=== PATIENT | female | born 1940 | race Caucasian/White ===

== ENCOUNTER 2018-03-18 13:03 | Inpatient (IN) | payer MEDICARE ==
--- NOTE | 2018-03-18 13:42 | ED Physician Chart ---
ED Chief Complaint/HPI - Patient Information Date Seen:: 03/18/18 Time Seen:: 13:37 Chief Complaint:: Depression and dementia History of Present Illness:: 78 yo female had increasing dementia and depression since her 2 months ago. Patient was hospitalized at [facility] 3 weeks ago for increased agitation. During past few days, patient became increasingly aggressive. Patient's family took patient to ER for further evaluation and management. Allergies:: Allergies Allergy/AdvReac Type Severity Reaction Status Date / Time No Known Allergies Allergy Verified 03/18/18 13:28 ED Review of Systems - Review of Systems General/Constitutional: No fever Skin: Skin lesions Head: No headache Eyes: No pain ENT: No nasal drainage Neck: No neck pain Cardio Vascular: No chest pain Pulmonary: No SOB GI: No nausea, No vomiting G/U: No dysuria Musculoskeletal: No bone or joint pain Psychiatric: Depression Neurological: No focal symptoms ED Past Medical History - Past Medical History Past Medical History: Thyroid disorder (Hypothyroidism) Social History: Non Smoker, Alcohol, Illicit Drug Use (marijuana) Surgical History: None ED Physical Exam - Physical Examination General/Constitutional: Awake Head: Atraumatic Eyes: PERRL Skin: No skin lesions ENMT: Nasal exam nl Neck: No nuchal rigidity Respiratory: No Wheeze/Rhonchi/Rales Cardio Vascular: RRR, No murmur, gallop, rubs, NL S1 S2 GI: No tenderness/rebounding/guarding Extremities: normal strength in all extremities Neuro/Psych: Normal motor strength Other Neuro/Psych comments:: Alert, oriented to self only ED Labs/Radiology/EKG Results - Lab Results Results: Laboratory Last Values WBC 11.6 Th/cmm (4.8-10.8) H 03/18/18 14:00 RBC 4.41 Mil/cmm (3.80-5.20) 03/18/18 14:00 Hgb 13.6 gm/dL (12-16) 03/18/18 14:00 Hct 40.7 % (41.0-60) L 03/18/18 14:00 MCV 92.4 fl (81-100) 03/18/18 14:00 MCH 30.8 pg (27.0-31.0) 03/18/18 14:00 MCHC Differential 33.3 pg (28.0-36.0) 03/18/18 14:00 RDW 12.3 % (11.5-20.0) 03/18/18 14:00 Plt Count 475 Th/cmm (150-400) H 03/18/18 14:00 MPV 6.8 fl 03/18/18 14:00 Neutrophils % 73.4 % (40.0-80.0) 03/18/18 14:00 Lymphocytes % 18.7 % (20.0-50.0) L 03/18/18 14:00 Monocytes % 7.0 % (2.0-10.0) 03/18/18 14:00 Eosinophils % 0.5 % (0.0-5.0) 03/18/18 14:00 Basophils % 0.4 % (0.0-2.0) 03/18/18 14:00 Sodium 138 mEq/L (136-145) 03/18/18 14:00 Potassium 3.8 mEq/L (3.5-5.1) 03/18/18 14:00 Chloride 104 mEq/L (98-107) 03/18/18 14:00 Carbon Dioxide 25.2 mEq/L (21.0-31.0) 03/18/18 14:00 Anion Gap 12.6 (7.0-16.0) 03/18/18 14:00 BUN 14 mg/dL (7-25) 03/18/18 14:00 Creatinine 0.8 mg/dL (0.6-1.2) 03/18/18 14:00 Est GFR ( Amer) TNP 03/18/18 14:00 Est GFR (Non-Af Amer) TNP 03/18/18 14:00 BUN/Creatinine Ratio 17.5 03/18/18 14:00 Glucose 94 mg/dL (70-105) 03/18/18 14:00 Calcium 9.5 mg/dL (8.6-10.3) 03/18/18 14:00 Total Bilirubin 1.0 mg/dL (0.3-1.0) 03/18/18 14:00 AST 31 U/L (13-39) 03/18/18 14:00 ALT 22 U/L (7-52) 03/18/18 14:00 Alkaline Phosphatase 67 U/L (34-104) 03/18/18 14:00 Total Protein 7.4 gm/dL (6.0-8.3) 03/18/18 14:00 Albumin 4.2 gm/dL (3.7-5.3) 03/18/18 14:00 Globulin 3.2 gm/dL 03/18/18 14:00 Albumin/Globulin Ratio 1.3 (1.0-1.8) 03/18/18 14:00 - Radiology Results Results: CXR: no focal consolidation - EKG Interpretations EKG Time:: 14:05 Rate & Rhythm: 73 bpm, sinus rhythm [place]: normal P axis Intervals: normal ED Assessment - Assessment General Assessment: Hypertension Hypothyroidism Leukocytosis Psychosis Dementia Assessment/Comments:: CBC, CMP, UA EKG, CXR Ciprofloxacin 500mg PO x 1 Admit to [facility] unit ED Septic Shock - . Is Septic Shock (SBP<90, OR Lactate>4 mmol\L) present?: No ED Reassessment (Disposition) - Reassessment Reassessment Condition:: Unchanged - Patient Disposition Discharge/Transfer:: [facility] w/in this hosp Admitting Medical Physician:: Twan Hunter Admitting Psych Physician:: Lon Allison ED Discharge Plan - Patient Disposition Admit/Discharge/Transfer: Acute Care w/in this hosp Condition at Disposition: Stable
[2018-03-18 14:13] LABS: % BASOPHILS 0.4 % (0.0-2.0); % EOSINOPHILS 0.5 % (0.0-5.0); % LYMPHOCYTES 18.7 % (20.0-50.0); % NEUTROPHILS 73.4 % (40.0-80.0); EOSINOPHILE ABSOLUTE 0.1 Th/cmm (0.1-0.4); HEMATOCRIT 40.7 % (41.0-60); HEMOGLOBIN 13.6 gm/dL (12-16); LYMPHOCYTE ABSOLUTE 2.2 Th/cmm (1.5-3.0); MEAN CELL VOLUME 92.4 fl (81-100); MEAN CORPUSCULAR HEMOGLOBIN 30.8 pg (27.0-31.0); MEAN CORPUSCULAR HGB CONC 33.3 pg (28.0-36.0); MEAN PLATELET VOLUME 6.8 fl; MONOCYTE ABSOLUTE 0.8 Th/cmm (0.3-1.0); NEUTROPHILE ABSOLUTE 8.5 Th/cmm (1.8-8.0); PLATELET COUNT 475 Th/cmm (150-400); RED BLOOD COUNT 4.41 Mil/cmm (3.80-5.20); RED CELL DISTRIBUTION WIDTH 12.3 % (11.5-20.0); WHITE BLOOD COUNT 11.6 Th/cmm (4.8-10.8)
[2018-03-18 14:31] LABS: ALB/GLOB RATIO 1.3 (1.0-1.8); ALBUMIN 4.2 gm/dL (3.7-5.3); ALKALINE PHOSPHATASE 67 U/L (34-104); ANION GAP 12.6 (7.0-16.0); BUN - UREA NITROGEN 14 mg/dL (7-25); CALCIUM SERUM 9.5 mg/dL (8.6-10.3); CARBON DIOXIDE 25.2 mEq/L (21.0-31.0); CHLORIDE 104 mEq/L (98-107); CREATININE - SERUM 0.8 mg/dL (0.6-1.2); GLUCOSE 94 mg/dL (70-105); POTASSIUM SERUM 3.8 mEq/L (3.5-5.1); SGOT 31 U/L (13-39); SGPT/ALT 22 U/L (7-52); SODIUM SERUM 138 mEq/L (136-145); TOTAL PROTEIN,SERUM 7.4 gm/dL (6.0-8.3)
--- NOTE | 2018-03-18 14:33 | Diagnostic Imaging Report ---
Portable chest x-ray History: Shortness of breath Allowing for portable technique the heart size is normal. No focal pulmonary parenchymal processes. No hilar or mediastinal abnormalities. Impression: No acute abnormalities.
[2018-03-18 16:41] LABS: URINE BILIRUBIN NEGATIVE (NEGATIVE); URINE BLOOD SMALL (NEGATIVE); URINE GLUCOSE (UA) NEGATIVE (NEGATIVE); URINE KETONE NEGATIVE (NEGATIVE); URINE LEUKOCYTE ESTERASE SMALL (NEGATIVE); URINE NITRATE NEGATIVE (NEGATIVE); URINE PH 5.5 (4.6 - 8.0); URINE PROTEIN TRACE mg/dL (NEGATIVE); URINE SOURCE RANDOM; URINE UROBILINOGEN 0.2 E.U./dL (0.2 - 1.0)
[2018-03-18 16:46] LABS: URINE CLARITY CLEAR (CLEAR); URINE COLOR YELLOW
[2018-03-18] MEDS ORDERED: Haloperidol Lactate 5 mg/mL 1mL Vial IM ONE (16:50)
[2018-03-18] MEDS ORDERED: Haloperidol Lactate 5 mg/mL 1mL Vial ONE (16:54)
[2018-03-18 17:15] LABS: AMPHETAMINE URINE NEGATIVE (NEGATIVE); BARBITURATES URINE NEGATIVE (NEGATIVE); CANNABINOID THC POSITIVE (NEGATIVE); COCAINE METABOLITE QUAL URINE NEGATIVE (NEGATIVE); METHADONE URINE NEGATIVE (NEGATIVE); METHAMPHETAMINES QUAL URINE NEGATIVE (NEGATIVE); OPIATES (MORPHINE) QUAL. URINE NEGATIVE (NEGATIVE); PHENCYCLIDINE (PCP) URINE NEGATIVE (NEGATIVE); TRICYCLICS (TCA) QUAL. URINE POSITIVE (NEGATIVE)
[2018-03-18 17:16] LABS: BENZODIAZEPINES QUAL URINE POSITIVE (NEGATIVE)
[2018-03-18] MEDS ORDERED: Maalox 30 mL Cup PO PRN (17:39)
[2018-03-18] MEDS ORDERED: Magnesium Hydroxide (MOM) 30 mL UDC PO PRN (17:39)
[2018-03-18] MEDS ORDERED: ZALEPLON 10 MG PO PRN (17:45)
[2018-03-18 17:54] VITALS: BP 173/85
--- NOTE | 2018-03-19 04:45 | Psychosocial Evaluation ---
DATE OF SERVICE: 03/18/2018 IDENTIFYING DATA: The patient is an 78-year-old woman living by herself. Information obtained by directly interviewing the patient as well as reviewing the admission papers and they are reliable. JUSTIFICATION FOR HOSPITALIZATION: The patient is admitted here on a voluntary basis in view of her acute psychosis. CHIEF COMPLAINT: "I have 5 and 6-year-old at home. I need to go home and call my son right away." HISTORY OF PRESENT ILLNESS: This is the first psychiatric hospitalization to [facility] for this patient who is reported to have been decompensating since the of her a few months ago. The patient is during the hospitalization has not been making much sense and has been screaming and yelling and is reported to have been going off on the staff members and the patient has to be given 2 mg of Haldol along with 25 Benadryl to calm her down. The patient at this time has been mentioning that she has 2 small children and she needs to go home. The patient is not making much sense and patient has been pacing most of the time on the unit. PAST PSYCHIATRIC HISTORY: Details are not known. MEDICAL HISTORY: Physical examination is requested to be done by Dr. Hunter. SUBSTANCE ABUSE HISTORY: None. PHYSICAL OR SEXUAL ABUSE HISTORY: None. LEGAL PROBLEMS: None at this time. STRENGTH AND ASSETS: The patient seems to be motivated. MENTAL STATUS EXAMINATION: The patient is an 78-year-old woman looking very frail, superficially cooperative. Eye contact is poor. Mood is noted to be irritable. Affect is constricted. The patient has short-term as well as long-term memory deficits. Insight and judgment at this time are noted to be very much impaired. Impulse control is noted to be poor. Coping skills are also noted very poor. The patient has been having difficult time to cope with the stress and has been pacing on the unit most of the time. The patient is not able to contract for safety at this time. The patient's behavior is ____ danger to self and others because of her behavior. DIAGNOSTIC IMPRESSION: AXIS I: Psychotic disorder, not otherwise specified. AXIS II: None. AXIS III: As per Dr. Hunter. IMMEDIATE TREATMENT PLAN: The patient is going to be observed on the inpatient unit, provided with supportive psychotherapy. The patient is going to be closely monitored and once stabilized, the patient is going to be discharged to [facility] to be followed up on an outpatient basis. JOB# [id number]
[2018-03-19] MEDS: Levothyroxine 0.075 Mg Tab PO SCH (06:48)
[2018-03-19] MEDS ORDERED: CANNABIS PO SCH (09:00)
[2018-03-19] MEDS: Escitalopram Oxalate 5 mg Tab PO SCH (09:41)
[2018-03-19] MEDS: Multivitamin Tab PO SCH (09:42)
--- NOTE | 2018-03-19 13:22 | History & Physical ---
ADMIT DATE: 03/18/2018 INTERNAL MEDICINE HISTORY AND PHYSICAL CHIEF COMPLAINT: Admitted for inpatient care. HISTORY OF PRESENT ILLNESS: This is an 78-year-old female with a history of hypertension, hypothyroidism, dementia, hypercholesterolemia, admitted from home secondary to agitated behavior. The patient is confused. The patient was seen by Dr. Allison and diagnosed with psychosis. The patient was cleared through the ER. PAST MEDICAL HISTORY: As mentioned in history of present illness. PAST SURGICAL HISTORY: Unable to obtain from the patient right now. ALLERGIES: No known drug allergies. MEDICATIONS: Lipitor, carvedilol, vitamin B12, Aricept, Keppra, Synthroid, Seroquel, and Sonata. FAMILY HISTORY: Noncontributory. SOCIAL HISTORY: The patient lives home. This is limited information. REVIEW OF SYSTEMS: This is limited secondary to the patient's current mental state. Case was discussed with the patient's son, Te Gray, as well as the patient's first . Apparently, the patient is from her second about 2 months ago and everything has been spiraling for the last 5 months according to the son. PHYSICAL EXAMINATION: VITAL SIGNS: Blood pressure 136/77, previously 172/85; respiration 20, pulse 94, temperature 98.0. GENERAL: Elderly female, appears her stated age. NECK: Supple. No mass. LUNGS: Equal breath sounds. Very few rhonchi. HEART: Regular rate and rhythm with a systolic ejection murmur. ABDOMEN: Soft, globular. Positive bowel sounds. EXTREMITIES: Positive excoriation. The patient's right upper extremity, please see the picture. No clubbing, cyanosis, or edema. NEUROLOGIC: Limited. LABORATORY DATA: WBC is 11, hemoglobin 13, platelets 475. Chemistries are within range. There is small blood in the urine and small leukocytes. Positive tricyclic, benzo, and marijuana. ASSESSMENT: 1. Hypertension. 2. Hypothyroidism. 3. Right upper extremity abrasion. 4. Leukocytosis. 5. Dementia. 6. Hypercholesterolemia. 7. Seizure, questionable. PLAN: We will continue the patient on current list of medications. We will prescribe the patient clonidine on an as needed basis. The patient will continue on Keppra as well as Synthroid. Case was discussed with the family member. We will continue to monitor the patient closely. [facility]# [id number]
--- NOTE | 2018-03-19 14:51 | Progress Notes ---
DATE: 03/19/2018 SUBJECTIVE: Staff was spoken to. The patient is interviewed. Mood is noted to be irritable. Affect is constricted. The patient is very angry and upset. The patient's son has been spoken to and he has been mentioning most of the problems have been coming from the right after the birthday of the patient that is her 78th birthday. The patient is reported to have been displaying a gross change in her behavior. The patient has been defecating and on the floors and also has been pacing most of the time and is not being much of any attention. The patient has been getting easily paranoid. The patient is reported to have been trying to take a swing at the staff members on the unit and the patient is to be closely monitored. The patient has no insight into her illness. In view of this, the patient has been started on 25 mg of the Seroquel and the patient is going to be closely monitored. ASSESSMENT: The patient's son mentioned that the patient has been severely depressed following the of her . The patient is going to be closely monitored at this time and followed up with supportive therapy and followed up. JOB# [id number]
[2018-03-19] MEDS: Atorvastatin Calcium 10 MG TAB PO SCH (16:46)
[2018-03-20] MEDS: Levothyroxine 0.075 Mg Tab PO SCH (06:30)
[2018-03-20] MEDS: Multivitamin Tab PO SCH (09:03)
[2018-03-20] MEDS: Escitalopram Oxalate 5 mg Tab PO SCH (09:03)
--- NOTE | 2018-03-20 12:37 | Internal Medicine Prog Note ---
Internal Medicine Subjective - Subjective Service Date: 03/20/18 Patient seen and examined:: with staff Patient is:: awake, verbal Per staff patient has:: tolerating meds Internal Medicine Objective - Results Result Diagrams: 03/18/18 14:00 03/18/18 14:00 Recent Labs: Laboratory Last Values WBC 11.6 Th/cmm (4.8-10.8) H 03/18/18 14:00 RBC 4.41 Mil/cmm (3.80-5.20) 03/18/18 14:00 Hgb 13.6 gm/dL (12-16) 03/18/18 14:00 Hct 40.7 % (41.0-60) L 03/18/18 14:00 MCV 92.4 fl (81-100) 03/18/18 14:00 MCH 30.8 pg (27.0-31.0) 03/18/18 14:00 MCHC Differential 33.3 pg (28.0-36.0) 03/18/18 14:00 RDW 12.3 % (11.5-20.0) 03/18/18 14:00 Plt Count 475 Th/cmm (150-400) H 03/18/18 14:00 MPV 6.8 fl 03/18/18 14:00 Neutrophils % 73.4 % (40.0-80.0) 03/18/18 14:00 Lymphocytes % 18.7 % (20.0-50.0) L 03/18/18 14:00 Monocytes % 7.0 % (2.0-10.0) 03/18/18 14:00 Eosinophils % 0.5 % (0.0-5.0) 03/18/18 14:00 Basophils % 0.4 % (0.0-2.0) 03/18/18 14:00 Sodium 138 mEq/L (136-145) 03/18/18 14:00 Potassium 3.8 mEq/L (3.5-5.1) 03/18/18 14:00 Chloride 104 mEq/L (98-107) 03/18/18 14:00 Carbon Dioxide 25.2 mEq/L (21.0-31.0) 03/18/18 14:00 Anion Gap 12.6 (7.0-16.0) 03/18/18 14:00 BUN 14 mg/dL (7-25) 03/18/18 14:00 Creatinine 0.8 mg/dL (0.6-1.2) 03/18/18 14:00 Est GFR ( Amer) TNP 03/18/18 14:00 Est GFR (Non-Af Amer) TNP 03/18/18 14:00 BUN/Creatinine Ratio 17.5 03/18/18 14:00 Glucose 94 mg/dL (70-105) 03/18/18 14:00 Calcium 9.5 mg/dL (8.6-10.3) 03/18/18 14:00 Total Bilirubin 1.0 mg/dL (0.3-1.0) 03/18/18 14:00 AST 31 U/L (13-39) 03/18/18 14:00 ALT 22 U/L (7-52) 03/18/18 14:00 Alkaline Phosphatase 67 U/L (34-104) 03/18/18 14:00 Troponin I 0.01 ng/mL (0.01-0.05) 03/18/18 14:00 B-Natriuretic Peptide 60.4 pg/mL (5.0-100.0) 03/18/18 14:00 Total Protein 7.4 gm/dL (6.0-8.3) 03/18/18 14:00 Albumin 4.2 gm/dL (3.7-5.3) 03/18/18 14:00 Globulin 3.2 gm/dL 03/18/18 14:00 Albumin/Globulin Ratio 1.3 (1.0-1.8) 03/18/18 14:00 TSH 2.89 uIU/ml (0.34-5.60) 03/18/18 14:00 Urine Source RANDOM 03/18/18 15:26 Urine Color YELLOW 03/18/18 15:26 Urine Clarity CLEAR (CLEAR) 03/18/18 15:26 Urine pH 5.5 (4.6 - 8.0) 03/18/18 15:26 Ur Specific [place] >= 1.030 (1.005-1.030) 03/18/18 15:26 Urine Protein TRACE mg/dL (NEGATIVE) 03/18/18 15:26 Urine Glucose (UA) NEGATIVE mg/dL (NEGATIVE) 03/18/18 15:26 Urine Ketones NEGATIVE mg/dL (NEGATIVE) 03/18/18 15:26 Urine Blood SMALL (NEGATIVE) H 03/18/18 15:26 Urine Nitrate NEGATIVE (NEGATIVE) 03/18/18 15:26 Urine Bilirubin NEGATIVE (NEGATIVE) 03/18/18 15:26 Urine Urobilinogen 0.2 E.U./dL (0.2 - 1.0) 03/18/18 15:26 Ur Leukocyte Esterase SMALL (NEGATIVE) H 03/18/18 15:26 Urine RBC Not Reportable 03/18/18 15:26 Urine WBC Not Reportable 03/18/18 15:26 Ur Epithelial Cells Not Reportable 03/18/18 15:26 Urine Bacteria Not Reportable 03/18/18 15:26 Urine Opiates Screen NEGATIVE (NEGATIVE) 03/18/18 15:26 Urine Methadone Screen NEGATIVE (NEGATIVE) 03/18/18 15:26 Ur Barbiturates Screen NEGATIVE (NEGATIVE) 03/18/18 15:26 Ur Tricyclics Screen POSITIVE (NEGATIVE) H 03/18/18 15:26 Ur Phencyclidine Scrn NEGATIVE (NEGATIVE) 03/18/18 15:26 Amphetamines Screen NEGATIVE (NEGATIVE) 03/18/18 15:26 U Methamphetamines Scrn NEGATIVE (NEGATIVE) 03/18/18 15:26 U Benzodiazepines Scrn POSITIVE (NEGATIVE) H 03/18/18 15:26 U Cocaine Metab Screen NEGATIVE (NEGATIVE) 03/18/18 15:26 U Cannabinoids Screen POSITIVE (NEGATIVE) H 03/18/18 15:26 RPR NONREACTIVE (NONREACTIVE) 03/18/18 14:00 - Physical Exam Vitals and I&O: Vital Signs Temp 97.2 F 03/20/18 06:43 Pulse 74 03/20/18 06:43 Resp 19 03/20/18 06:43 BP 132/69 03/20/18 06:43 Pulse Ox 98 03/20/18 06:43 Intake & Output 03/19/18 03/20/18 03/20/18 18:59 06:59 18:59 Intake Total 1000 180 Balance 1000 180 Intake: Oral 1000 180 Other: # Voids 3 2 # Bowel Movements 0 0 Active Medications: Current Medications Acetaminophen (Tylenol) 650 mg PO Q4HR PRN PRN Reason: Mild Pain / Temp above 100 Stop: 05/17/18 17:38 Al Hydrox/Mg Hydrox/Simethicone (Maalox) 30 ml PO Q4HR PRN PRN Reason: GI DISTRESS Stop: 05/17/18 17:38 Atorvastatin Calcium (Lipitor) 10 mg PO QPM DARI PRN Reason: Protocol Stop: 05/18/18 16:59 Last Admin: 03/19/18 16:46 Dose: 10 mg Cyanocobalamin (Vitamin B12) 1,000 mcg PO HS DARI Stop: 05/17/18 20:59 Last Admin: 03/19/18 20:29 Dose: 1,000 mcg Donepezil HCl (Aricept) 5 mg PO QPM DARI Stop: 05/18/18 16:59 Last Admin: 03/19/18 16:47 Dose: 5 mg Escitalopram Oxalate (Lexapro) 5 mg PO DAILY DARI PRN Reason: Protocol Stop: 05/18/18 08:59 Last Admin: 03/20/18 09:03 Dose: 5 mg Levetiracetam (Keppra) 250 mg PO DAILY DARI Stop: 05/18/18 08:59 Last Admin: 03/20/18 09:03 Dose: 250 mg Levothyroxine Sodium (Synthroid) 0.075 mg PO QDAC DARI Stop: 05/18/18 07:29 Last Admin: 03/20/18 06:30 Dose: 0.075 mg Lorazepam (Ativan) 0.5 mg PO Q4HR PRN; Protocol PRN Reason: Anxiety Stop: 04/17/18 17:38 Last Admin: 03/20/18 09:03 Dose: 0.5 mg Magnesium Hydroxide (Milk Of Magnesia) 30 ml PO HS PRN PRN Reason: Constipation Memantine (Namenda) 5 mg PO BID DARI Stop: 05/18/18 08:59 Last Admin: 03/20/18 09:03 Dose: 5 mg Multivitamins/Vitamin C (Theragran) 1 tab PO DAILY DARI Stop: 05/18/18 08:59 Last Admin: 03/20/18 09:03 Dose: 1 tab Quetiapine Fumarate (Seroquel) 25 mg PO BID DARI PRN Reason: Protocol Stop: 05/18/18 08:59 Last Admin: 03/20/18 09:03 Dose: 25 mg Zolpidem Tartrate (Ambien) 5 mg PO HS PRN PRN Reason: Insomnia Stop: 05/17/18 17:38 Last Admin: 03/18/18 21:06 Dose: 5 mg General: weak, alert HEENT: NC/AT, PERRLA Neck: Supple Lungs: CTAB Cardiovascular: RRR, Normal S1, without murmur Abdomen: soft, non-tender, non-distended, positive bowel sound Neurological: alert Internal Medicine Assmt/Plan - Assessment Assessment: HTN HYPOTHYROIDISM RIGHT UPPER EXTREMITY ABRASION LEUKOCYTOSIS DEMENTIA HYPERCHOLESTEREMIA SEIZURE - Plan Plan: MONITOR BP SEIZURE PRECAUTIONS CONTINUE CURRENT PLAN OF CARE
[2018-03-20] MEDS: Atorvastatin Calcium 10 MG TAB PO SCH (17:26)
--- NOTE | 2018-03-20 22:28 | Progress Notes ---
DATE: 03/20/2018 PROGRESS NOTE SUBJECTIVE: Staff was spoken to. The patient is interviewed. Mood is irritable. Affect is constricted. The patient continues to be paranoid and the patient is pacing most of the time on the unit. Insight and judgment at this time are noted to be still impaired. Impulse control is noted to be poor. The patient is stating that she has 2 children and she needs to care for them and she is running towards the doors. ASSESSMENT: The patient is still grossly psychotic. PLAN: To continue the patient with the supportive therapy and encouraged the patient to verbalize the concerns rather than to act out. JOB# [id number]
[2018-03-21] MEDS: Levothyroxine 0.075 Mg Tab PO SCH (07:01)
[2018-03-21] MEDS: Multivitamin Tab PO SCH (10:07)
[2018-03-21] MEDS: Escitalopram Oxalate 5 mg Tab PO SCH (10:08)
--- NOTE | 2018-03-21 14:14 | Internal Medicine Prog Note ---
Internal Medicine Subjective - Subjective Service Date: 03/21/18 Patient is:: awake, verbal Per staff patient has:: tolerating meds Internal Medicine Objective - Results Result Diagrams: 03/18/18 14:00 03/18/18 14:00 Recent Labs: Laboratory Last Values WBC 11.6 Th/cmm (4.8-10.8) H 03/18/18 14:00 RBC 4.41 Mil/cmm (3.80-5.20) 03/18/18 14:00 Hgb 13.6 gm/dL (12-16) 03/18/18 14:00 Hct 40.7 % (41.0-60) L 03/18/18 14:00 MCV 92.4 fl (81-100) 03/18/18 14:00 MCH 30.8 pg (27.0-31.0) 03/18/18 14:00 MCHC Differential 33.3 pg (28.0-36.0) 03/18/18 14:00 RDW 12.3 % (11.5-20.0) 03/18/18 14:00 Plt Count 475 Th/cmm (150-400) H 03/18/18 14:00 MPV 6.8 fl 03/18/18 14:00 Neutrophils % 73.4 % (40.0-80.0) 03/18/18 14:00 Lymphocytes % 18.7 % (20.0-50.0) L 03/18/18 14:00 Monocytes % 7.0 % (2.0-10.0) 03/18/18 14:00 Eosinophils % 0.5 % (0.0-5.0) 03/18/18 14:00 Basophils % 0.4 % (0.0-2.0) 03/18/18 14:00 Sodium 138 mEq/L (136-145) 03/18/18 14:00 Potassium 3.8 mEq/L (3.5-5.1) 03/18/18 14:00 Chloride 104 mEq/L (98-107) 03/18/18 14:00 Carbon Dioxide 25.2 mEq/L (21.0-31.0) 03/18/18 14:00 Anion Gap 12.6 (7.0-16.0) 03/18/18 14:00 BUN 14 mg/dL (7-25) 03/18/18 14:00 Creatinine 0.8 mg/dL (0.6-1.2) 03/18/18 14:00 Est GFR ( Amer) TNP 03/18/18 14:00 Est GFR (Non-Af Amer) TNP 03/18/18 14:00 BUN/Creatinine Ratio 17.5 03/18/18 14:00 Glucose 94 mg/dL (70-105) 03/18/18 14:00 Calcium 9.5 mg/dL (8.6-10.3) 03/18/18 14:00 Total Bilirubin 1.0 mg/dL (0.3-1.0) 03/18/18 14:00 AST 31 U/L (13-39) 03/18/18 14:00 ALT 22 U/L (7-52) 03/18/18 14:00 Alkaline Phosphatase 67 U/L (34-104) 03/18/18 14:00 Troponin I 0.01 ng/mL (0.01-0.05) 03/18/18 14:00 B-Natriuretic Peptide 60.4 pg/mL (5.0-100.0) 03/18/18 14:00 Total Protein 7.4 gm/dL (6.0-8.3) 03/18/18 14:00 Albumin 4.2 gm/dL (3.7-5.3) 03/18/18 14:00 Globulin 3.2 gm/dL 03/18/18 14:00 Albumin/Globulin Ratio 1.3 (1.0-1.8) 03/18/18 14: TSH 2.89 uIU/ml (0.34-5.60) 03/18/18 14:00 Urine Source RANDOM 03/18/18 15:26 Urine Color YELLOW 03/18/18 15: Urine Clarity CLEAR (CLEAR) 03/18/18 15: Urine pH 5.5 (4.6 - 8.0) 03/18/18 15: Ur Specific [place] >= 1.030 (1.005-1.030) 03/18/18 15:26 Urine Protein TRACE mg/dL (NEGATIVE) 03/18/18 15: Urine Glucose (UA) NEGATIVE mg/dL (NEGATIVE) 03/18/18 15: Urine Ketones NEGATIVE mg/dL (NEGATIVE) 03/18/18 15:26 Urine Blood SMALL (NEGATIVE) H 03/18/18 15:26 Urine Nitrate NEGATIVE (NEGATIVE) 03/18/18 15:26 Urine Bilirubin NEGATIVE (NEGATIVE) 03/18/18 15:26 Urine Urobilinogen 0.2 E.U./dL (0.2 - 1.0) 03/18/18 15:26 Ur Leukocyte Esterase SMALL (NEGATIVE) H 03/18/18 15:26 Urine RBC Not Reportable 03/18/18 15:26 Urine WBC Not Reportable 03/18/18 15:26 Ur Epithelial Cells Not Reportable 03/18/18 15:26 Urine Bacteria Not Reportable 03/18/18 15:26 Urine Opiates Screen NEGATIVE (NEGATIVE) 03/18/18 15:26 Urine Methadone Screen NEGATIVE (NEGATIVE) 03/18/18 15:26 Ur Barbiturates Screen NEGATIVE (NEGATIVE) 03/18/18 15:26 Ur Tricyclics Screen POSITIVE (NEGATIVE) H 03/18/18 15:26 Ur Phencyclidine Scrn NEGATIVE (NEGATIVE) 03/18/18 15:26 Amphetamines Screen NEGATIVE (NEGATIVE) 03/18/18 15:26 U Methamphetamines Scrn NEGATIVE (NEGATIVE) 03/18/18 15:26 U Benzodiazepines Scrn POSITIVE (NEGATIVE) H 03/18/18 15:26 U Cocaine Metab Screen NEGATIVE (NEGATIVE) 03/18/18 15:26 U Cannabinoids Screen POSITIVE (NEGATIVE) H 03/18/18 15:26 RPR NONREACTIVE (NONREACTIVE) 03/18/18 14:00 - Physical Exam Vitals and I&O: Vital Signs Temp 97.4 F 03/21/18 06:35 Pulse 76 03/21/18 06:35 Resp 20 03/21/18 06:35 BP 132/70 03/21/18 06:35 Pulse Ox 96 03/21/18 06:35 Intake & Output 03/20/18 03/21/18 03/21/18 18:59 06:59 18:59 Intake Total 900 120 Balance 900 120 Intake: Oral 900 120 Other: # Voids 3 3 Active Medications: Current Medications Acetaminophen (Tylenol) 650 mg PO Q4HR PRN PRN Reason: Mild Pain / Temp above 100 Stop: 05/17/18 17:38 Al Hydrox/Mg Hydrox/Simethicone (Maalox) 30 ml PO Q4HR PRN PRN Reason: GI DISTRESS Stop: 05/17/18 17:38 Atorvastatin Calcium (Lipitor) 10 mg PO QPM DARI PRN Reason: Protocol Stop: 05/18/18 16:59 Last Admin: 03/20/18 17:26 Dose: Not Given Cyanocobalamin (Vitamin B12) 1,000 mcg PO HS DARI Stop: 05/17/18 20:59 Last Admin: 03/20/18 21:13 Dose: 1,000 mcg Donepezil HCl (Aricept) 5 mg PO QPM DARI Stop: 05/18/18 16:59 Last Admin: 03/20/18 17:26 Dose: Not Given Escitalopram Oxalate (Lexapro) 5 mg PO DAILY DARI PRN Reason: Protocol Stop: 05/18/18 08:59 Last Admin: 03/21/18 10:08 Dose: 5 mg Levetiracetam (Keppra) 250 mg PO DAILY DARI Stop: 05/18/18 08:59 Last Admin: 03/21/18 10:07 Dose: 250 mg Levothyroxine Sodium (Synthroid) 0.075 mg PO QDAC DARI Stop: 05/18/18 07:29 Last Admin: 03/21/18 07:01 Dose: Not Given Lorazepam (Ativan) 0.5 mg PO Q4HR PRN; Protocol PRN Reason: Anxiety Stop: 04/17/18 17:38 Last Admin: 03/21/18 09:58 Dose: 0.5 mg Magnesium Hydroxide (Milk Of Magnesia) 30 ml PO HS PRN PRN Reason: Constipation Memantine (Namenda) 5 mg PO BID DARI Stop: 05/18/18 08:59 Last Admin: 03/21/18 10:07 Dose: 5 mg Multivitamins/Vitamin C (Theragran) 1 tab PO DAILY DARI Stop: 05/18/18 08:59 Last Admin: 03/21/18 10:07 Dose: 1 tab Quetiapine Fumarate (Seroquel) 25 mg PO BID DARI PRN Reason: Protocol Stop: 05/18/18 08:59 Last Admin: 03/21/18 10:08 Dose: 25 mg Zolpidem Tartrate (Ambien) 5 mg PO HS PRN PRN Reason: Insomnia Stop: 05/17/18 17:38 Last Admin: 03/18/18 21:06 Dose: 5 mg General: weak, alert HEENT: NC/AT, PERRLA Neck: Supple Lungs: CTAB Cardiovascular: RRR, Normal S1, without murmur Abdomen: soft, non-tender, non-distended, positive bowel sound Neurological: alert Internal Medicine Assmt/Plan - Assessment Assessment: HTN HYPOTHYROIDISM RIGHT UPPER EXTREMITY ABRASION LEUKOCYTOSIS DEMENTIA HYPERCHOLESTEREMIA SEIZURE - Plan Plan: MONITOR BP SEIZURE PRECAUTIONS CONTINUE CURRENT PLAN OF CARE
[2018-03-21] MEDS: Atorvastatin Calcium 10 MG TAB PO SCH (16:55)
--- NOTE | 2018-03-22 01:16 | Progress Notes ---
DATE: 03/21/2018 PSYCHIATRIC PROGRESS NOTE SUBJECTIVE: Staff was spoken to. The patient is interviewed. Mood is noted to be dysphoric. Coping skills are noted to be poor. Insight and judgment are also noted to be very limited. The patient has been easily agitated and has been pacing most of the time on the unit. The patient is getting sundown syndrome. The patient has been on 5 mg of the Lexapro for her depression and 25 mg twice a day of the Seroquel and has been able to tolerate the medication. ASSESSMENT AND PLAN: The patient is still psychotic and confused and demented. PLAN: To continue the patient with supportive therapy and followup. JOB# [id number]
--- NOTE | 2018-03-22 02:13 | Consultation ---
DATE OF CONSULTATION: 03/20/2018 REFERRING PHYSICIAN: Lon Allison M.D. TYPE OF CONSULTATION: Psychology. HISTORY OF PRESENT ILLNESS: The patient is an 78-year-old female. According to the record, the patient was living by herself and was being admitted here on a voluntary basis due to possible psychosis. The following is by review of the medical record and by patient's self report. The patient, upon interview, states that she has a 5-year-old at home and she needs to go home and call her son right away. During the clinical interview, the patient's family came to visit and provided some collateral information as well. According to this information, the patient apparently had been decompensating since the of her a few months ago. The patient at the time of this interview is very loud and demanding. The patient had been given emergency medicine to help calm her down. The patient is not making much sense at the time of this clinical interview. The patient was unable to verbally contract for safety. The patient denied any other concerns medically. PAST MEDICAL HISTORY: Please see history and physical by Dr. Hunter. PAST PSYCHIATRIC HISTORY: Details are unknown at the time of this clinical interview. SUBSTANCE ABUSE HISTORY: None according to record. PSYCHOSOCIAL HISTORY: The patient did not answer questions about educational or occupational history or mosque affiliation. The patient denied any history of physical or sexual abuse. The patient was confused about the question of whether there are any current legal problems. The patient stated that we needed to contact her son. The patient's family is very supportive. According to record review, the patient's son has contacted foster care social worker and is presently making arrangements for placement. MENTAL STATUS EXAMINATION: The patient appears to be older than her stated age. The patient's attitude is guarded. Eye contact is poor. The patient appears to be very frail. Speech is slow and delayed with intermittent episodes of yelling and screaming and making demands. Mood is irritable. Affect is constricted. The patient denied any auditory or visual hallucinations. Further evaluation is needed and noted. The patient's behavior on the unit has been difficult to redirect. The patient has been pacing at times according to staff. Impulse control is poor. Concentration is poor. The patient is up in a jessi- chair. She did not participate in the memory assessment. The patient appears to be quite confused. Sensorium is alert and oriented to self only. The patient has no insight into her illness. Insight is poor. Judgment is compromised. DIAGNOSTIC IMPRESSION: AXIS I: Psychotic disorder, not otherwise specified. AXIS II: Deferred. AXIS III: Per Dr. Hunter. TREATMENT PLAN: The patient has been seen by Dr. Allison for psychiatric evaluation and for the management of the patient's psychotropic medications. We will provide supportive psychotherapy to include coping strategies for phase of life issues. We will provide grief/loss and bereavement therapy with respect to the patient's passing recently within the last 3-6 months. We will provide supportive therapy throughout the patient's stay. We will provide de-escalation and reality orientation and integration. The patient and the patient's family have discussed placement for the patient on discharge with the foster care social worker department. The patient will be discharged to a placement of their choice upon stabilization. Thank you, Dr. Allison for this consult and the opportunity to participate with you in this patient's care. [facility]# [id number] EARLINE
[2018-03-22] MEDS: Levothyroxine 0.075 Mg Tab PO SCH (06:37)
[2018-03-22] MEDS: Escitalopram Oxalate 5 mg Tab PO SCH (08:39)
[2018-03-22] MEDS: Multivitamin Tab PO SCH (08:39)
--- NOTE | 2018-03-22 09:46 | Internal Medicine Prog Note ---
Internal Medicine Subjective - Subjective Service Date: 03/22/18 Patient is:: awake, verbal Per staff patient has:: tolerating meds Internal Medicine Objective - Results Result Diagrams: 03/18/18 14:00 03/18/18 14:00 Recent Labs: Laboratory Last Values WBC 11.6 Th/cmm (4.8-10.8) H 03/18/18 14:00 RBC 4.41 Mil/cmm (3.80-5.20) 03/18/18 14:00 Hgb 13.6 gm/dL (12-16) 03/18/18 14:00 Hct 40.7 % (41.0-60) L 03/18/18 14:00 MCV 92.4 fl (81-100) 03/18/18 14:00 MCH 30.8 pg (27.0-31.0) 03/18/18 14:00 MCHC Differential 33.3 pg (28.0-36.0) 03/18/18 14:00 RDW 12.3 % (11.5-20.0) 03/18/18 14:00 Plt Count 475 Th/cmm (150-400) H 03/18/18 14:00 MPV 6.8 fl 03/18/18 14:00 Neutrophils % 73.4 % (40.0-80.0) 03/18/18 14:00 Lymphocytes % 18.7 % (20.0-50.0) L 03/18/18 14:00 Monocytes % 7.0 % (2.0-10.0) 03/18/18 14:00 Eosinophils % 0.5 % (0.0-5.0) 03/18/18 14:00 Basophils % 0.4 % (0.0-2.0) 03/18/18 14:00 Sodium 138 mEq/L (136-145) 03/18/18 14:00 Potassium 3.8 mEq/L (3.5-5.1) 03/18/18 14:00 Chloride 104 mEq/L (98-107) 03/18/18 14:00 Carbon Dioxide 25.2 mEq/L (21.0-31.0) 03/18/18 14:00 Anion Gap 12.6 (7.0-16.0) 03/18/18 14:00 BUN 14 mg/dL (7-25) 03/18/18 14:00 Creatinine 0.8 mg/dL (0.6-1.2) 03/18/18 14:00 Est GFR ( Amer) TNP 03/18/18 14:00 Est GFR (Non-Af Amer) TNP 03/18/18 14:00 BUN/Creatinine Ratio 17.5 03/18/18 14:00 Glucose 94 mg/dL (70-105) 03/18/18 14:00 Calcium 9.5 mg/dL (8.6-10.3) 03/18/18 14:00 Total Bilirubin 1.0 mg/dL (0.3-1.0) 03/18/18 14:00 AST 31 U/L (13-39) 03/18/18 14:00 ALT 22 U/L (7-52) 03/18/18 14:00 Alkaline Phosphatase 67 U/L (34-104) 03/18/18 14:00 Troponin I 0.01 ng/mL (0.01-0.05) 03/18/18 14:00 B-Natriuretic Peptide 60.4 pg/mL (5.0-100.0) 03/18/18 14:00 Total Protein 7.4 gm/dL (6.0-8.3) 03/18/18 14:00 Albumin 4.2 gm/dL (3.7-5.3) 03/18/18 14:00 Globulin 3.2 gm/dL 03/18/18 14:00 Albumin/Globulin Ratio 1.3 (1.0-1.8) 03/18/18 14: TSH 2.89 uIU/ml (0.34-5.60) 03/18/18 14:00 Urine Source RANDOM 03/18/18 15:26 Urine Color YELLOW 03/18/18 15: Urine Clarity CLEAR (CLEAR) 03/18/18 15: Urine pH 5.5 (4.6 - 8.0) 03/18/18 15: Ur Specific [place] >= 1.030 (1.005-1.030) 03/18/18 15:26 Urine Protein TRACE mg/dL (NEGATIVE) 03/18/18 15: Urine Glucose (UA) NEGATIVE mg/dL (NEGATIVE) 03/18/18 15: Urine Ketones NEGATIVE mg/dL (NEGATIVE) 03/18/18 15:26 Urine Blood SMALL (NEGATIVE) H 03/18/18 15:26 Urine Nitrate NEGATIVE (NEGATIVE) 03/18/18 15:26 Urine Bilirubin NEGATIVE (NEGATIVE) 03/18/18 15:26 Urine Urobilinogen 0.2 E.U./dL (0.2 - 1.0) 03/18/18 15:26 Ur Leukocyte Esterase SMALL (NEGATIVE) H 03/18/18 15:26 Urine RBC Not Reportable 03/18/18 15:26 Urine WBC Not Reportable 03/18/18 15:26 Ur Epithelial Cells Not Reportable 03/18/18 15:26 Urine Bacteria Not Reportable 03/18/18 15:26 Urine Opiates Screen NEGATIVE (NEGATIVE) 03/18/18 15:26 Urine Methadone Screen NEGATIVE (NEGATIVE) 03/18/18 15:26 Ur Barbiturates Screen NEGATIVE (NEGATIVE) 03/18/18 15:26 Ur Tricyclics Screen POSITIVE (NEGATIVE) H 03/18/18 15:26 Ur Phencyclidine Scrn NEGATIVE (NEGATIVE) 03/18/18 15:26 Amphetamines Screen NEGATIVE (NEGATIVE) 03/18/18 15:26 U Methamphetamines Scrn NEGATIVE (NEGATIVE) 03/18/18 15:26 U Benzodiazepines Scrn POSITIVE (NEGATIVE) H 03/18/18 15:26 U Cocaine Metab Screen NEGATIVE (NEGATIVE) 03/18/18 15:26 U Cannabinoids Screen POSITIVE (NEGATIVE) H 03/18/18 15:26 RPR NONREACTIVE (NONREACTIVE) 03/18/18 14:00 - Physical Exam Vitals and I&O: Vital Signs Temp 97.0 F 03/21/18 20:00 Pulse 81 03/21/18 20:00 Resp 20 03/21/18 20:00 BP 136/66 03/21/18 20:00 Pulse Ox 96 03/21/18 20:00 Intake & Output 03/21/18 03/22/18 03/22/18 18:59 06:59 18:59 Intake Total 600 420 Balance 600 420 Intake: Oral 600 420 Other: # Voids 2 1 Active Medications: Current Medications Acetaminophen (Tylenol) 650 mg PO Q4HR PRN PRN Reason: Mild Pain / Temp above 100 Stop: 05/17/18 17:38 Al Hydrox/Mg Hydrox/Simethicone (Maalox) 30 ml PO Q4HR PRN PRN Reason: GI DISTRESS Stop: 05/17/18 17:38 Atorvastatin Calcium (Lipitor) 10 mg PO QPM DARI PRN Reason: Protocol Stop: 05/18/18 16:59 Last Admin: 03/21/18 16:55 Dose: 10 mg Cyanocobalamin (Vitamin B12) 1,000 mcg PO HS DARI Stop: 05/17/18 20:59 Last Admin: 03/21/18 20:53 Dose: 1,000 mcg Donepezil HCl (Aricept) 5 mg PO QPM DARI Stop: 05/18/18 16:59 Last Admin: 03/21/18 16:55 Dose: 5 mg Escitalopram Oxalate (Lexapro) 5 mg PO DAILY DARI PRN Reason: Protocol Stop: 05/18/18 08:59 Last Admin: 03/22/18 08:39 Dose: 5 mg Levetiracetam (Keppra) 250 mg PO DAILY DARI Stop: 05/18/18 08:59 Last Admin: 03/22/18 08:39 Dose: 250 mg Levothyroxine Sodium (Synthroid) 0.075 mg PO QDAC DARI Stop: 05/18/18 07:29 Last Admin: 03/22/18 06:37 Dose: 0.075 mg Lorazepam (Ativan) 0.5 mg PO Q4HR PRN; Protocol PRN Reason: Anxiety Stop: 04/17/18 17:38 Last Admin: 03/22/18 04:31 Dose: 0.5 mg Magnesium Hydroxide (Milk Of Magnesia) 30 ml PO HS PRN PRN Reason: Constipation Memantine (Namenda) 5 mg PO BID DARI Stop: 05/18/18 08:59 Last Admin: 03/21/18 16:55 Dose: 5 mg Multivitamins/Vitamin C (Theragran) 1 tab PO DAILY DARI Stop: 05/18/18 08:59 Last Admin: 03/22/18 08:39 Dose: 1 tab Quetiapine Fumarate (Seroquel) 25 mg PO BID DARI PRN Reason: Protocol Stop: 05/18/18 08:59 Last Admin: 03/22/18 08:39 Dose: 25 mg Zolpidem Tartrate (Ambien) 5 mg PO HS PRN PRN Reason: Insomnia Stop: 05/17/18 17:38 Last Admin: 03/21/18 20:53 Dose: 5 mg General: weak, alert HEENT: NC/AT, PERRLA Neck: Supple Lungs: CTAB Cardiovascular: RRR, Normal S1, without murmur Abdomen: soft, non-tender, non-distended, positive bowel sound Neurological: alert Internal Medicine Assmt/Plan - Assessment Assessment: HTN HYPOTHYROIDISM RIGHT UPPER EXTREMITY ABRASION LEUKOCYTOSIS DEMENTIA HYPERCHOLESTEREMIA SEIZURE - Plan Plan: MONITOR BP SEIZURE PRECAUTIONS CONTINUE CURRENT PLAN OF CARE
[2018-03-22] MEDS: Atorvastatin Calcium 10 MG TAB PO SCH (16:09)
--- NOTE | 2018-03-23 02:08 | Progress Notes ---
DATE: 03/22/2018 PSYCHIATRIC PROGRESS NOTE SUBJECTIVE: Staff was spoken to. The patient is interviewed. Mood is noted to be anxious. The patient's insight and judgment are noted to be still impaired. Impulse control is very poor. The patient is still confused. The patient is getting aggressive. No side effects of the medications are noted. The patient is able to tolerate the medications so far and the patient's family wants the patient to be placed. The patient at this time is on 25 mg twice a day of the Seroquel and citalopram 5 mg has been given for her depression. With these medications, the patient is going to be observed, will be encouraged to participate in the groups and verbalize the concerns. ASSESSMENT: The patient is still depressed. PLAN: To continue the patient with the supportive therapy and followup. JOB# [id number]
[2018-03-23] MEDS: Levothyroxine 0.075 Mg Tab PO SCH (06:33)
[2018-03-23] MEDS: Multivitamin Tab PO SCH (08:45)
[2018-03-23] MEDS: Escitalopram Oxalate 5 mg Tab PO SCH (08:45)
--- NOTE | 2018-03-23 12:51 | Internal Medicine Prog Note ---
Internal Medicine Subjective - Subjective Patient seen and examined:: with staff, chart reviewed Patient is:: awake, verbal Per staff patient has:: no adverse event, no episodes of fall, agitated, tolerating meds Internal Medicine Objective - Results Result Diagrams: 03/18/18 14:00 03/18/18 14:00 Recent Labs: Laboratory Last Values WBC 11.6 Th/cmm (4.8-10.8) H 03/18/18 14:00 RBC 4.41 Mil/cmm (3.80-5.20) 03/18/18 14:00 Hgb 13.6 gm/dL (12-16) 03/18/18 14:00 Hct 40.7 % (41.0-60) L 03/18/18 14:00 MCV 92.4 fl (81-100) 03/18/18 14:00 MCH 30.8 pg (27.0-31.0) 03/18/18 14:00 MCHC Differential 33.3 pg (28.0-36.0) 03/18/18 14:00 RDW 12.3 % (11.5-20.0) 03/18/18 14:00 Plt Count 475 Th/cmm (150-400) H 03/18/18 14:00 MPV 6.8 fl 03/18/18 14:00 Neutrophils % 73.4 % (40.0-80.0) 03/18/18 14:00 Lymphocytes % 18.7 % (20.0-50.0) L 03/18/18 14:00 Monocytes % 7.0 % (2.0-10.0) 03/18/18 14:00 Eosinophils % 0.5 % (0.0-5.0) 03/18/18 14:00 Basophils % 0.4 % (0.0-2.0) 03/18/18 14:00 Sodium 138 mEq/L (136-145) 03/18/18 14:00 Potassium 3.8 mEq/L (3.5-5.1) 03/18/18 14:00 Chloride 104 mEq/L (98-107) 03/18/18 14:00 Carbon Dioxide 25.2 mEq/L (21.0-31.0) 03/18/18 14:00 Anion Gap 12.6 (7.0-16.0) 03/18/18 14:00 BUN 14 mg/dL (7-25) 03/18/18 14:00 Creatinine 0.8 mg/dL (0.6-1.2) 03/18/18 14:00 Est GFR ( Amer) TNP 03/18/18 14:00 Est GFR (Non-Af Amer) TNP 03/18/18 14:00 BUN/Creatinine Ratio 17.5 03/18/18 14:00 Glucose 94 mg/dL (70-105) 03/18/18 14:00 Calcium 9.5 mg/dL (8.6-10.3) 03/18/18 14:00 Total Bilirubin 1.0 mg/dL (0.3-1.0) 03/18/18 14:00 AST 31 U/L (13-39) 03/18/18 14:00 ALT 22 U/L (7-52) 03/18/18 14:00 Alkaline Phosphatase 67 U/L (34-104) 03/18/18 14:00 Troponin I 0.01 ng/mL (0.01-0.05) 03/18/18 14:00 B-Natriuretic Peptide 60.4 pg/mL (5.0-100.0) 03/18/18 14:00 Total Protein 7.4 gm/dL (6.0-8.3) 03/18/18 14:00 Albumin 4.2 gm/dL (3.7-5.3) 03/18/18 14:00 Globulin 3.2 gm/dL 03/18/18 14:00 Albumin/Globulin Ratio 1.3 (1.0-1.8) 03/18/18 14:00 TSH 2.89 uIU/ml (0.34-5.60) 03/18/18 14:00 Urine Source RANDOM 03/18/18 15: Urine Color YELLOW 03/18/18 15: Urine Clarity CLEAR (CLEAR) 03/18/18 15: Urine pH 5.5 (4.6 - 8.0) 03/18/18 15: Ur Specific [place] >= 1.030 (1.005-1.030) 03/18/18 15:26 Urine Protein TRACE mg/dL (NEGATIVE) 03/18/18 15: Urine Glucose (UA) NEGATIVE mg/dL (NEGATIVE) 03/18/18 15:26 Urine Ketones NEGATIVE mg/dL (NEGATIVE) 03/18/18 15:26 Urine Blood SMALL (NEGATIVE) H 03/18/18 15:26 Urine Nitrate NEGATIVE (NEGATIVE) 03/18/18 15:26 Urine Bilirubin NEGATIVE (NEGATIVE) 03/18/18 15:26 Urine Urobilinogen 0.2 E.U./dL (0.2 - 1.0) 03/18/18 15:26 Ur Leukocyte Esterase SMALL (NEGATIVE) H 03/18/18 15:26 Urine RBC Not Reportable 03/18/18 15:26 Urine WBC Not Reportable 03/18/18 15:26 Ur Epithelial Cells Not Reportable 03/18/18 15:26 Urine Bacteria Not Reportable 03/18/18 15:26 Urine Opiates Screen NEGATIVE (NEGATIVE) 03/18/18 15:26 Urine Methadone Screen NEGATIVE (NEGATIVE) 03/18/18 15:26 Ur Barbiturates Screen NEGATIVE (NEGATIVE) 03/18/18 15:26 Ur Tricyclics Screen POSITIVE (NEGATIVE) H 03/18/18 15:26 Ur Phencyclidine Scrn NEGATIVE (NEGATIVE) 03/18/18 15:26 Amphetamines Screen NEGATIVE (NEGATIVE) 03/18/18 15:26 U Methamphetamines Scrn NEGATIVE (NEGATIVE) 03/18/18 15:26 U Benzodiazepines Scrn POSITIVE (NEGATIVE) H 03/18/18 15:26 U Cocaine Metab Screen NEGATIVE (NEGATIVE) 03/18/18 15:26 U Cannabinoids Screen POSITIVE (NEGATIVE) H 03/18/18 15:26 RPR NONREACTIVE (NONREACTIVE) 03/18/18 14:00 - Physical Exam Vitals and I&O: Vital Signs Temp 97.8 F 03/22/18 20:00 Pulse 76 03/22/18 20:00 Resp 20 03/22/18 20:00 BP 127/66 03/22/18 20:00 Pulse Ox 98 03/22/18 20:00 Intake & Output 03/22/18 03/23/18 03/23/18 18:59 06:59 18:59 Intake Total 600 480 Output Total 0 Balance 600 480 Intake: Oral 600 480 Output: Urine 0 Other: # Voids 3 4 Stool Characteristics Soft Soft Active Medications: Current Medications Acetaminophen (Tylenol) 650 mg PO Q4HR PRN PRN Reason: Mild Pain / Temp above 100 Stop: 05/17/18 17:38 Al Hydrox/Mg Hydrox/Simethicone (Maalox) 30 ml PO Q4HR PRN PRN Reason: GI DISTRESS Stop: 05/17/18 17:38 Atorvastatin Calcium (Lipitor) 10 mg PO QPM DARI PRN Reason: Protocol Stop: 05/18/18 16:59 Last Admin: 03/22/18 16:09 Dose: 10 mg Cyanocobalamin (Vitamin B12) 1,000 mcg PO HS DARI Stop: 05/17/18 20:59 Last Admin: 03/22/18 20:23 Dose: 1,000 mcg Donepezil HCl (Aricept) 5 mg PO QPM DARI Stop: 05/18/18 16:59 Last Admin: 03/22/18 16:09 Dose: 5 mg Escitalopram Oxalate (Lexapro) 5 mg PO DAILY DARI PRN Reason: Protocol Stop: 05/18/18 08:59 Last Admin: 03/23/18 08:45 Dose: 5 mg Levothyroxine Sodium (Synthroid) 0.075 mg PO QDAC DARI Stop: 05/18/18 07:29 Last Admin: 03/23/18 06:33 Dose: 0.075 mg Lorazepam (Ativan) 0.5 mg PO Q4HR PRN; Protocol PRN Reason: Anxiety Stop: 04/17/18 17:38 Last Admin: 03/23/18 06:12 Dose: 0.5 mg Magnesium Hydroxide (Milk Of Magnesia) 30 ml PO HS PRN PRN Reason: Constipation Memantine (Namenda) 5 mg PO BID DARI Stop: 05/18/18 08:59 Last Admin: 03/23/18 08:45 Dose: 5 mg Multivitamins/Vitamin C (Theragran) 1 tab PO DAILY DARI Stop: 05/18/18 08:59 Last Admin: 03/23/18 08:45 Dose: 1 tab Quetiapine Fumarate (Seroquel) 25 mg PO BID DARI PRN Reason: Protocol Stop: 05/18/18 08:59 Last Admin: 03/23/18 08:45 Dose: 25 mg Zolpidem Tartrate (Ambien) 5 mg PO HS PRN PRN Reason: Insomnia Stop: 05/17/18 17:38 Last Admin: 03/22/18 21:36 Dose: 5 mg General: weak, alert HEENT: NC/AT, PERRLA Neck: Supple Lungs: CTAB Cardiovascular: RRR, Normal S1, without murmur Abdomen: soft, non-tender, non-distended, positive bowel sound Neurological: alert Internal Medicine Assmt/Plan - Assessment Assessment: - Assessment Assessment: HTN HYPOTHYROIDISM RIGHT UPPER EXTREMITY ABRASION LEUKOCYTOSIS DEMENTIA HYPERCHOLESTEREMIA SEIZURE - Plan Plan: MONITOR BP SEIZURE PRECAUTIONS CONTINUE CURRENT PLAN OF CARE - Plan Plan: cpm Nutritional Asmnt/Malnutr-PDOC - Dietary Evaluation Malnutrition Findings (Please click <Entered> for more info): Nutritional Asmnt/Malnutrition Start: 03/22/18 13: 56 Text: Status: Complete Freq: Document 03/22/18 13:56 HORTENCIA (Rec: 03/22/18 14:03 HORTENCIA [id number]) Nutritional Asmnt/Malnutrition Patient General Information Nutritional Screening Moderate Risk Diagnosis psychosis Pertinent Medical Hx/Surgical Hx HTN, hypothyroidism, dementia, hypercholesterolemia Subjective Information Pt seen sitting in jessi-chair in dining room. Spoke with nurse, pt is very confused, not a big eater, usually eats 25-50% of meals. Per EMR, PO intake 50%. Current Diet Order/ Nutrition Support regular Pertinent Medications vit B12, synthroid, theragran, seroquel Pertinent Labs 03/18 nutrition related labs WNL Nutritional Hx/Data Height 1.65 m Height (Calculated Centimeters) 165.1 Current Weight (lbs) 49.895 kg Weight (Calculated Kilograms) 49.9 Weight (Calculated Grams) 36324.2 [place] Body Weight 125 % [place] Body Weight 88 Body Mass Index (BMI) 18.3 Weight Status Underweight GI Symptoms GI Symptoms None Last BM 03/18 x 1 Difficult in: None Skin Integrity/Comment: BUE discoloration Current %PO Poor (25-49%) Estimated Nutritional Goals BEE in Kcals: Using Current wt Calories/Kcals/Kg 27-32 Kcals Calculated 0537-3859 Protein: Using Current wt Protein g/k-1.2 Protein Calculated 50-60 Fluid: ml 1350-1600ml (1ml/kcal) Nutritional Problem 1. Problem Problem inadequate food intake Etiology mental status Signs/Symptoms: PO intake about 50% of meals Malnutrition Alert Is there a minimum of two criteria No selected? Query Text:Check all the applicable criteria. A minimum of two criteria are recommended for diagnosis of either severe or non-severe malnutrition. Malnutrition Related to Morbid Obesity Malnutrition related to morbid obesity No Intervention/Recommendation Comments 1. Continue with regular diet as ordered. If PO intake continue <50%, will consider adding nutrition supplements to increase nutrition intake. 2. Monitor PO intake, wt, labs and skin integrity 3. F/U as moderate risk in 3-5 days, 03/25-03/27 Expected Outcomes/Goals Expected Outcomes/Goals 1. PO intake to meet at least 75% of nutritional needs. 2. Wt stability, skin to remain intact, labs WNL.
[2018-03-23] MEDS: Atorvastatin Calcium 10 MG TAB PO SCH (16:11)
--- NOTE | 2018-03-23 23:10 | Progress Notes ---
DATE: 03/23/2018 SUBJECTIVE: Staff was spoken to. The patient's coping skills at this time are noted to be poor. The patient has been having difficult time to cope with the stress. The patient has been confused and has been pacing on the unit. No side effects to the medications are noted. ASSESSMENT: The patient is still confused and depressed. PLAN: To continue the patient with the current medications. I encouraged the patient to verbalize the concerns rather than to act out. JOB# [id number]
[2018-03-24] MEDS: Escitalopram Oxalate 5 mg Tab PO SCH (09:05)
[2018-03-24] MEDS: Multivitamin Tab PO SCH (09:06)
--- NOTE | 2018-03-24 13:52 | Internal Medicine Prog Note ---
Internal Medicine Subjective - Subjective Patient seen and examined:: with staff, chart reviewed Patient is:: awake, verbal Per staff patient has:: no adverse event, no episodes of fall, agitated, tolerating meds Internal Medicine Objective - Results Result Diagrams: 03/18/18 14:00 03/18/18 14:00 Recent Labs: Laboratory Last Values WBC 11.6 Th/cmm (4.8-10.8) H 03/18/18 14:00 RBC 4.41 Mil/cmm (3.80-5.20) 03/18/18 14:00 Hgb 13.6 gm/dL (12-16) 03/18/18 14:00 Hct 40.7 % (41.0-60) L 03/18/18 14:00 MCV 92.4 fl (81-100) 03/18/18 14:00 MCH 30.8 pg (27.0-31.0) 03/18/18 14:00 MCHC Differential 33.3 pg (28.0-36.0) 03/18/18 14:00 RDW 12.3 % (11.5-20.0) 03/18/18 14:00 Plt Count 475 Th/cmm (150-400) H 03/18/18 14:00 MPV 6.8 fl 03/18/18 14:00 Neutrophils % 73.4 % (40.0-80.0) 03/18/18 14:00 Lymphocytes % 18.7 % (20.0-50.0) L 03/18/18 14:00 Monocytes % 7.0 % (2.0-10.0) 03/18/18 14:00 Eosinophils % 0.5 % (0.0-5.0) 03/18/18 14:00 Basophils % 0.4 % (0.0-2.0) 03/18/18 14:00 Sodium 138 mEq/L (136-145) 03/18/18 14:00 Potassium 3.8 mEq/L (3.5-5.1) 03/18/18 14:00 Chloride 104 mEq/L (98-107) 03/18/18 14:00 Carbon Dioxide 25.2 mEq/L (21.0-31.0) 03/18/18 14:00 Anion Gap 12.6 (7.0-16.0) 03/18/18 14:00 BUN 14 mg/dL (7-25) 03/18/18 14:00 Creatinine 0.8 mg/dL (0.6-1.2) 03/18/18 14:00 Est GFR ( Amer) TNP 03/18/18 14:00 Est GFR (Non-Af Amer) TNP 03/18/18 14:00 BUN/Creatinine Ratio 17.5 03/18/18 14:00 Glucose 94 mg/dL (70-105) 03/18/18 14:00 Calcium 9.5 mg/dL (8.6-10.3) 03/18/18 14:00 Total Bilirubin 1.0 mg/dL (0.3-1.0) 03/18/18 14:00 AST 31 U/L (13-39) 03/18/18 14:00 ALT 22 U/L (7-52) 03/18/18 14:00 Alkaline Phosphatase 67 U/L (34-104) 03/18/18 14:00 Troponin I 0.01 ng/mL (0.01-0.05) 03/18/18 14:00 B-Natriuretic Peptide 60.4 pg/mL (5.0-100.0) 03/18/18 14:00 Total Protein 7.4 gm/dL (6.0-8.3) 03/18/18 14:00 Albumin 4.2 gm/dL (3.7-5.3) 03/18/18 14:00 Globulin 3.2 gm/dL 03/18/18 14:00 Albumin/Globulin Ratio 1.3 (1.0-1.8) 03/18/18 14:00 TSH 2.89 uIU/ml (0.34-5.60) 03/18/18 14:00 Urine Source RANDOM 03/18/18 15: Urine Color YELLOW 03/18/18 15: Urine Clarity CLEAR (CLEAR) 03/18/18 15: Urine pH 5.5 (4.6 - 8.0) 03/18/18 15: Ur Specific [place] >= 1.030 (1.005-1.030) 03/18/18 15:26 Urine Protein TRACE mg/dL (NEGATIVE) 03/18/18 15: Urine Glucose (UA) NEGATIVE mg/dL (NEGATIVE) 03/18/18 15:26 Urine Ketones NEGATIVE mg/dL (NEGATIVE) 03/18/18 15:26 Urine Blood SMALL (NEGATIVE) H 03/18/18 15:26 Urine Nitrate NEGATIVE (NEGATIVE) 03/18/18 15:26 Urine Bilirubin NEGATIVE (NEGATIVE) 03/18/18 15:26 Urine Urobilinogen 0.2 E.U./dL (0.2 - 1.0) 03/18/18 15:26 Ur Leukocyte Esterase SMALL (NEGATIVE) H 03/18/18 15:26 Urine RBC Not Reportable 03/18/18 15:26 Urine WBC Not Reportable 03/18/18 15:26 Ur Epithelial Cells Not Reportable 03/18/18 15:26 Urine Bacteria Not Reportable 03/18/18 15:26 Urine Opiates Screen NEGATIVE (NEGATIVE) 03/18/18 15:26 Urine Methadone Screen NEGATIVE (NEGATIVE) 03/18/18 15:26 Ur Barbiturates Screen NEGATIVE (NEGATIVE) 03/18/18 15:26 Ur Tricyclics Screen POSITIVE (NEGATIVE) H 03/18/18 15:26 Ur Phencyclidine Scrn NEGATIVE (NEGATIVE) 03/18/18 15:26 Amphetamines Screen NEGATIVE (NEGATIVE) 03/18/18 15:26 U Methamphetamines Scrn NEGATIVE (NEGATIVE) 03/18/18 15:26 U Benzodiazepines Scrn POSITIVE (NEGATIVE) H 03/18/18 15:26 U Cocaine Metab Screen NEGATIVE (NEGATIVE) 03/18/18 15:26 U Cannabinoids Screen POSITIVE (NEGATIVE) H 03/18/18 15:26 RPR NONREACTIVE (NONREACTIVE) 03/18/18 14:00 - Physical Exam Vitals and I&O: Vital Signs Temp 97.6 F 03/24/18 06:24 Pulse 93 03/24/18 06:24 Resp 20 03/24/18 06:24 BP 139/76 03/24/18 06:24 Pulse Ox 98 03/24/18 06:24 Intake & Output 03/23/18 03/24/18 03/24/18 18:59 06:59 18:59 Intake Total 1200 120 Balance 1200 120 Intake: Oral 1200 120 Other: # Voids 4 3 # Bowel Movements 0 Stool Characteristics Soft Active Medications: Current Medications Acetaminophen (Tylenol) 650 mg PO Q4HR PRN PRN Reason: Mild Pain / Temp above 100 Stop: 05/17/18 17:38 Al Hydrox/Mg Hydrox/Simethicone (Maalox) 30 ml PO Q4HR PRN PRN Reason: GI DISTRESS Stop: 05/17/18 17:38 Atorvastatin Calcium (Lipitor) 10 mg PO QPM DARI PRN Reason: Protocol Stop: 05/18/18 16:59 Last Admin: 03/23/18 16:11 Dose: 10 mg Cyanocobalamin (Vitamin B12) 1,000 mcg PO HS DARI Stop: 05/17/18 20:59 Last Admin: 03/23/18 21:28 Dose: Not Given Donepezil HCl (Aricept) 5 mg PO QPM DARI Stop: 05/18/18 16:59 Last Admin: 03/23/18 16:11 Dose: 5 mg Escitalopram Oxalate (Lexapro) 5 mg PO DAILY DARI PRN Reason: Protocol Stop: 05/18/18 08:59 Last Admin: 03/24/18 09:05 Dose: 5 mg Levothyroxine Sodium (Synthroid) 0.075 mg PO QDAC DARI Stop: 05/18/18 07:29 Last Admin: 03/23/18 06:33 Dose: 0.075 mg Lorazepam (Ativan) 0.5 mg PO Q4HR PRN; Protocol PRN Reason: Anxiety Stop: 04/17/18 17:38 Last Admin: 03/24/18 11:27 Dose: 0.5 mg Magnesium Hydroxide (Milk Of Magnesia) 30 ml PO HS PRN PRN Reason: Constipation Memantine (Namenda) 5 mg PO BID [facility] Stop: 05/18/18 08:59 Last Admin: 03/24/18 09:06 Dose: 5 mg Multivitamins/Vitamin C (Theragran) 1 tab PO DAILY DARI Stop: 05/18/18 08:59 Last Admin: 03/24/18 09:06 Dose: 1 tab Quetiapine Fumarate (Seroquel) 25 mg PO BID DARI PRN Reason: Protocol Stop: 05/18/18 08:59 Last Admin: 03/24/18 09:06 Dose: 25 mg Zolpidem Tartrate (Ambien) 5 mg PO HS PRN PRN Reason: Insomnia Stop: 05/17/18 17:38 Last Admin: 03/22/18 21:36 Dose: 5 mg General: weak, demented HEENT: NC/AT, PERRLA Neck: Supple Lungs: CTAB Cardiovascular: RRR, Normal S1, without murmur Abdomen: soft, non-tender, non-distended, positive bowel sound Neurological: alert Internal Medicine Assmt/Plan - Assessment Assessment: - Assessment Assessment: HTN HYPOTHYROIDISM RIGHT UPPER EXTREMITY ABRASION LEUKOCYTOSIS DEMENTIA HYPERCHOLESTEREMIA SEIZURE - Plan Plan: MONITOR BP SEIZURE PRECAUTIONS CONTINUE CURRENT PLAN OF CARE - Plan Plan: cpm Nutritional Asmnt/Malnutr-PDOC - Dietary Evaluation Malnutrition Findings (Please click <Entered> for more info): Nutritional Asmnt/Malnutrition Start: 03/22/18 13: 56 Text: Status: Complete Freq: Document 03/22/18 13:56 ADITI (Rec: 03/22/18 14:03 ADITI [email or web address]) Nutritional Asmnt/Malnutrition Patient General Information Nutritional Screening Moderate Risk Diagnosis psychosis Pertinent Medical Hx/Surgical Hx HTN, hypothyroidism, dementia, hypercholesterolemia Subjective Information Pt seen sitting in jessi-chair in dining room. Spoke with nurse, pt is very confused, not a big eater, usually eats 25-50% of meals. Per EMR, PO intake 50%. Current Diet Order/ Nutrition Support regular Pertinent Medications vit B12, synthroid, theragran, seroquel Pertinent Labs 03/18 nutrition related labs WNL Nutritional Hx/Data Height 1.65 m Height (Calculated Centimeters) 165.1 Current Weight (lbs) 49.895 kg Weight (Calculated Kilograms) 49.9 Weight (Calculated Grams) 96341.2 [place] Body Weight 125 % [place] Body Weight 88 Body Mass Index (BMI) 18.3 Weight Status Underweight GI Symptoms GI Symptoms None Last BM 03/18 x 1 Difficult in: None Skin Integrity/Comment: BUE discoloration Current %PO Poor (25-49%) Estimated Nutritional Goals BEE in Kcals: Using Current wt Calories/Kcals/Kg 27-32 Kcals Calculated 6675-0574 Protein: Using Current wt Protein g/k-1.2 Protein Calculated 50-60 Fluid: ml 1350-1600ml (1ml/kcal) Nutritional Problem 1. Problem Problem inadequate food intake Etiology mental status Signs/Symptoms: PO intake about 50% of meals Malnutrition Alert Is there a minimum of two criteria No selected? Query Text:Check all the applicable criteria. A minimum of two criteria are recommended for diagnosis of either severe or non-severe malnutrition. Malnutrition Related to Morbid Obesity Malnutrition related to morbid obesity No Intervention/Recommendation Comments 1. Continue with regular diet as ordered. If PO intake continue <50%, will consider adding nutrition supplements to increase nutrition intake. 2. Monitor PO intake, wt, labs and skin integrity 3. F/U as moderate risk in 3-5 days, 03/25-03/27 Expected Outcomes/Goals Expected Outcomes/Goals 1. PO intake to meet at least 75% of nutritional needs. 2. Wt stability, skin to remain intact, labs WNL.
[2018-03-24] MEDS: Atorvastatin Calcium 10 MG TAB PO SCH (16:20)
--- NOTE | 2018-03-24 17:27 | Progress Notes ---
DATE: 03/24/2018 SUBJECTIVE: Staff was spoken to. The patient is interviewed. Mood is noted to be irritable. Affect is constricted. Insight and judgment at this time are noted to be still impaired. Impulse control is noted to be limited. The patient is still confused and has been trying to get out of the GD chair. The patient is not able to contract for safety. ASSESSMENT: The patient is still grossly psychotic. PLAN: To continue the patient with the supportive therapy and followup. JOB# [id number]
[2018-03-25] MEDS: Levothyroxine 0.075 Mg Tab PO SCH (06:45)
[2018-03-25] MEDS: Escitalopram Oxalate 5 mg Tab PO SCH (09:10)
[2018-03-25] MEDS: Multivitamin Tab PO SCH (09:10)
--- NOTE | 2018-03-25 12:53 | Internal Medicine Prog Note ---
Internal Medicine Subjective - Subjective Service Date: 03/25/18 Patient is:: awake, verbal Per staff patient has:: no adverse event, no episodes of fall, agitated, tolerating meds Internal Medicine Objective - Results Result Diagrams: 03/18/18 14:00 03/18/18 14:00 Recent Labs: Laboratory Last Values WBC 11.6 Th/cmm (4.8-10.8) H 03/18/18 14:00 RBC 4.41 Mil/cmm (3.80-5.20) 03/18/18 14:00 Hgb 13.6 gm/dL (12-16) 03/18/18 14:00 Hct 40.7 % (41.0-60) L 03/18/18 14:00 MCV 92.4 fl (81-100) 03/18/18 14:00 MCH 30.8 pg (27.0-31.0) 03/18/18 14:00 MCHC Differential 33.3 pg (28.0-36.0) 03/18/18 14:00 RDW 12.3 % (11.5-20.0) 03/18/18 14:00 Plt Count 475 Th/cmm (150-400) H 03/18/18 14:00 MPV 6.8 fl 03/18/18 14:00 Neutrophils % 73.4 % (40.0-80.0) 03/18/18 14:00 Lymphocytes % 18.7 % (20.0-50.0) L 03/18/18 14:00 Monocytes % 7.0 % (2.0-10.0) 03/18/18 14:00 Eosinophils % 0.5 % (0.0-5.0) 03/18/18 14:00 Basophils % 0.4 % (0.0-2.0) 03/18/18 14:00 Sodium 138 mEq/L (136-145) 03/18/18 14:00 Potassium 3.8 mEq/L (3.5-5.1) 03/18/18 14:00 Chloride 104 mEq/L (98-107) 03/18/18 14:00 Carbon Dioxide 25.2 mEq/L (21.0-31.0) 03/18/18 14:00 Anion Gap 12.6 (7.0-16.0) 03/18/18 14:00 BUN 14 mg/dL (7-25) 03/18/18 14:00 Creatinine 0.8 mg/dL (0.6-1.2) 03/18/18 14:00 Est GFR ( Amer) TNP 03/18/18 14:00 Est GFR (Non-Af Amer) TNP 03/18/18 14:00 BUN/Creatinine Ratio 17.5 03/18/18 14:00 Glucose 94 mg/dL (70-105) 03/18/18 14:00 Calcium 9.5 mg/dL (8.6-10.3) 03/18/18 14:00 Total Bilirubin 1.0 mg/dL (0.3-1.0) 03/18/18 14:00 AST 31 U/L (13-39) 03/18/18 14:00 ALT 22 U/L (7-52) 03/18/18 14:00 Alkaline Phosphatase 67 U/L (34-104) 03/18/18 14:00 Troponin I 0.01 ng/mL (0.01-0.05) 03/18/18 14:00 B-Natriuretic Peptide 60.4 pg/mL (5.0-100.0) 03/18/18 14:00 Total Protein 7.4 gm/dL (6.0-8.3) 03/18/18 14:00 Albumin 4.2 gm/dL (3.7-5.3) 03/18/18 14:00 Globulin 3.2 gm/dL 03/18/18 14:00 Albumin/Globulin Ratio 1.3 (1.0-1.8) 03/18/18 14:00 TSH 2.89 uIU/ml (0.34-5.60) 03/18/18 14:00 Urine Source RANDOM 03/18/18 15: Urine Color YELLOW 03/18/18 15: Urine Clarity CLEAR (CLEAR) 03/18/18 15: Urine pH 5.5 (4.6 - 8.0) 03/18/18 15: Ur Specific [place] >= 1.030 (1.005-1.030) 03/18/18 15: Urine Protein TRACE mg/dL (NEGATIVE) 03/18/18 15: Urine Glucose (UA) NEGATIVE mg/dL (NEGATIVE) 03/18/18 15:26 Urine Ketones NEGATIVE mg/dL (NEGATIVE) 03/18/18 15:26 Urine Blood SMALL (NEGATIVE) H 03/18/18 15:26 Urine Nitrate NEGATIVE (NEGATIVE) 03/18/18 15:26 Urine Bilirubin NEGATIVE (NEGATIVE) 03/18/18 15:26 Urine Urobilinogen 0.2 E.U./dL (0.2 - 1.0) 03/18/18 15:26 Ur Leukocyte Esterase SMALL (NEGATIVE) H 03/18/18 15:26 Urine RBC Not Reportable 03/18/18 15:26 Urine WBC Not Reportable 03/18/18 15:26 Ur Epithelial Cells Not Reportable 03/18/18 15:26 Urine Bacteria Not Reportable 03/18/18 15:26 Urine Opiates Screen NEGATIVE (NEGATIVE) 03/18/18 15:26 Urine Methadone Screen NEGATIVE (NEGATIVE) 03/18/18 15:26 Ur Barbiturates Screen NEGATIVE (NEGATIVE) 03/18/18 15:26 Ur Tricyclics Screen POSITIVE (NEGATIVE) H 03/18/18 15:26 Ur Phencyclidine Scrn NEGATIVE (NEGATIVE) 03/18/18 15:26 Amphetamines Screen NEGATIVE (NEGATIVE) 03/18/18 15:26 U Methamphetamines Scrn NEGATIVE (NEGATIVE) 03/18/18 15:26 U Benzodiazepines Scrn POSITIVE (NEGATIVE) H 03/18/18 15:26 U Cocaine Metab Screen NEGATIVE (NEGATIVE) 03/18/18 15:26 U Cannabinoids Screen POSITIVE (NEGATIVE) H 03/18/18 15:26 RPR NONREACTIVE (NONREACTIVE) 03/18/18 14:00 - Physical Exam Vitals and I&O: Vital Signs Temp 98 F 03/25/18 06:20 Pulse 73 03/25/18 06:20 Resp 20 03/25/18 06:20 BP 118/66 03/25/18 06:20 Pulse Ox 97 03/25/18 06:20 Intake & Output 03/24/18 03/25/18 03/25/18 18:59 06:59 18:59 Intake Total 750 120 Balance 750 120 Intake: Oral 750 120 Other: # Voids 3 3 # Bowel Movements 1 Active Medications: Current Medications Acetaminophen (Tylenol) 650 mg PO Q4HR PRN PRN Reason: Mild Pain / Temp above 100 Stop: 05/17/18 17:38 Last Admin: 03/24/18 16:50 Dose: 650 mg Al Hydrox/Mg Hydrox/Simethicone (Maalox) 30 ml PO Q4HR PRN PRN Reason: GI DISTRESS Stop: 05/17/18 17:38 Atorvastatin Calcium (Lipitor) 10 mg PO QPM DARI PRN Reason: Protocol Stop: 05/18/18 16:59 Last Admin: 03/24/18 16:20 Dose: 10 mg Cyanocobalamin (Vitamin B12) 1,000 mcg PO HS DARI Stop: 05/17/18 20:59 Last Admin: 03/24/18 21:11 Dose: 1,000 mcg Donepezil HCl (Aricept) 5 mg PO QPM DARI Stop: 05/18/18 16:59 Last Admin: 03/24/18 16:20 Dose: 5 mg Escitalopram Oxalate (Lexapro) 10 mg PO DAILY DARI PRN Reason: Protocol Stop: 05/25/18 08:59 Levothyroxine Sodium (Synthroid) 0.075 mg PO QDAC DARI Stop: 05/18/18 07:29 Last Admin: 03/25/18 06:45 Dose: 0.075 mg Lorazepam (Ativan) 0.5 mg PO Q4HR PRN; Protocol PRN Reason: Anxiety Stop: 04/17/18 17:38 Last Admin: 03/25/18 09:40 Dose: 0.5 mg Magnesium Hydroxide (Milk Of Magnesia) 30 ml PO HS PRN PRN Reason: Constipation Memantine (Namenda) 5 mg PO BID DARI Stop: 05/18/18 08:59 Last Admin: 03/25/18 09:10 Dose: 5 mg Multivitamins/Vitamin C (Theragran) 1 tab PO DAILY DARI Stop: 05/18/18 08:59 Last Admin: 03/25/18 09:10 Dose: 1 tab Quetiapine Fumarate (Seroquel) 25 mg PO HS DARI PRN Reason: Protocol Stop: 05/24/18 20:59 Zolpidem Tartrate (Ambien) 5 mg PO HS PRN PRN Reason: Insomnia Stop: 05/17/18 17:38 Last Admin: 03/24/18 21:11 Dose: 5 mg General: weak, demented HEENT: NC/AT, PERRLA Neck: Supple Lungs: CTAB Cardiovascular: RRR, Normal S1, without murmur Abdomen: soft, non-tender, non-distended, positive bowel sound Neurological: alert Internal Medicine Assmt/Plan - Assessment Assessment: HTN HYPOTHYROIDISM RIGHT UPPER EXTREMITY ABRASION LEUKOCYTOSIS DEMENTIA HYPERCHOLESTEREMIA SEIZURE - Plan Plan: MONITOR BP SEIZURE PRECAUTIONS CONTINUE CURRENT PLAN OF CARE Nutritional Asmnt/Malnutr-PDOC - Dietary Evaluation Malnutrition Findings (Please click <Entered> for more info): Nutritional Asmnt/Malnutrition Start: 03/22/18 13: 56 Text: Status: Complete Freq: Document 03/22/18 13:56 [facility] (Rec: 03/22/18 14:03 HEN [email or web address]) Nutritional Asmnt/Malnutrition Patient General Information Nutritional Screening Moderate Risk Diagnosis psychosis Pertinent Medical Hx/Surgical Hx HTN, hypothyroidism, dementia, hypercholesterolemia Subjective Information Pt seen sitting in jessi-chair in dining room. Spoke with nurse, pt is very confused, not a big eater, usually eats 25-50% of meals. Per EMR, PO intake 50%. Current Diet Order/ Nutrition Support regular Pertinent Medications vit B12, synthroid, theragran, seroquel Pertinent Labs 03/18 nutrition related labs WNL Nutritional Hx/Data Height 5 ft 5 in Height (Calculated Centimeters) 165.1 Current Weight (lbs) 110 lb Weight (Calculated Kilograms) 49.9 Weight (Calculated Grams) 43961.2 [place] Body Weight 125 % [place] Body Weight 88 Body Mass Index (BMI) 18.3 Weight Status Underweight GI Symptoms GI Symptoms None Last BM 03/18 x 1 Difficult in: None Skin Integrity/Comment: BUE discoloration Current %PO Poor (25-49%) Estimated Nutritional Goals BEE in Kcals: Using Current wt Calories/Kcals/Kg 27-32 Kcals Calculated 3347-2347 Protein: Using Current wt Protein g/k-1.2 Protein Calculated 50-60 Fluid: ml 1350-1600ml (1ml/kcal) Nutritional Problem 1. Problem Problem inadequate food intake Etiology mental status Signs/Symptoms: PO intake about 50% of meals Malnutrition Alert Is there a minimum of two criteria No selected? Query Text:Check all the applicable criteria. A minimum of two criteria are recommended for diagnosis of either severe or non-severe malnutrition. Malnutrition Related to Morbid Obesity Malnutrition related to morbid obesity No Intervention/Recommendation Comments 1. Continue with regular diet as ordered. If PO intake continue <50%, will consider adding nutrition supplements to increase nutrition intake. 2. Monitor PO intake, wt, labs and skin integrity 3. F/U as moderate risk in 3-5 days, 03/25-03/27 Expected Outcomes/Goals Expected Outcomes/Goals 1. PO intake to meet at least 75% of nutritional needs. 2. Wt stability, skin to remain intact, labs WNL.
--- NOTE | 2018-03-26 00:21 | Progress Notes ---
DATE: 03/25/2018 SUBJECTIVE: Staff was spoken to. The patient is interviewed. Mood dysphoric. Coping skills are noted to be very poor. The patient is not making much sense. Coping skills are noted to be poor at this time. The patient has been having difficult time to cope with the stress. The patient is still going on a tangent. The patient's insight and judgment noted to be very much impaired. ASSESSMENT: The patient is still depressed and paranoid. PLAN: To continue the patient with the supportive therapy and followup. JOB# [id number]
== END 2018-03-25 14:00 | disposition home health service (06) | DRG 885 ==
LOC: ER 13:03 → GERO2 16:06 → GERO 17:54
PROVIDERS: ADMIT Psychiatry & Neurology Psychiatry; ATTEND Psychiatry & Neurology Psychiatry
DX: F23 Brief psychotic disorder (principal); F03.91 Unspecified dementia, unspecified severity, with behavioral disturbance; I10 Essential (primary) hypertension; E03.9 Hypothyroidism, unspecified; D72.829 Elevated white blood cell count, unspecified; E78.5 Hyperlipidemia, unspecified; G40.909 Epilepsy, unspecified, not intractable, without status epilepticus; E78.00 Pure hypercholesterolemia, unspecified
CPT/HCPCS: 36415-UA; 71045-TC; 80053-TC; 80307; 81001-TC; 83880-TC; 84443-TC; 84484-TC; 85025-TC; 86592-TC; 93005; J1200; J1630; Z7610